=== PATIENT | female | born 1945 | race Caucasian/White ===

== ENCOUNTER 2019-12-19 11:47 | Emergency (ER) | payer MEDICARE ==
--- NOTE | 2019-12-19 12:43 | RAD ---
Left knee 4 views HISTORY: Injury. FINDINGS: Joint spaces are preserved. Mild osteophytosis. Small amount of fluid distends the suprapatellar bursa. Density posterior to the distal femur on the lateral view may represent fluid distention of the joint capsule also. No acute fracture, dislocation, or aggressive osseous erosions. IMPRESSION : No acute osseous abnormalities are demonstrated. Joint fluid may represent an effusion from otherwise mild osteoarthritic changes or could reflect hem atoma from internal derangement.
--- NOTE | 2019-12-19 14:41 | RAD ---
FOUR VIEWS OF THE RIGHT WRIST: INDICATION: History of fall with right wrist pain. 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 No acute fracture or subluxation is grossly eviden t. There is diffuse osteopenia. IMPRESSION: No definite acute osseous abnormality. Osteoarthrosis of the right hand. POS: [facility]
== END 2019-12-19 13:48 | disposition home or self-care (01) ==
LOC: MADERS 11:47
DX: S63.501A Unspecified sprain of right wrist, initial encounter (principal); S80.212A Abrasion, left knee, initial encounter; W18.30XA Fall on same level, unspecified, initial encounter